=== PATIENT | female | born 1940 | race Two or more races ===

== ENCOUNTER 2018-02-18 22:35 | Emergency (ER) | payer OTHER ==
[2018-02-18 23:15] VITALS: BP 148/83; PULSE 101; TEMP 99.1; BMI 29.9
[2018-02-19] MEDS ORDERED: ALBUTEROL SO4 2.5/IPRATROPIUM 0.5 INH SOL 3 ML VIAL.NEB. NEB ONE ×2 (00:22→00:32)
--- NOTE | 2018-02-19 00:22 | PDOC ---
Attending Attestation - HPI HPI: 02/19/18 00:32 The patient is a 77 year old female, with a significant PMH of asthma, GERD, hyperlipidemia, hypertension, venous insufficiency, who presents to the emergency department with 1 week of cough and shortness of breath. The patient states she has had asthma for many years which always worsens in cold weather. The patient denies chest pain, headache and dizziness. Denies fever, chills, nausea, vomit, diarrhea and constipation. Denies dysuria, frequency, urgency and hematuria. Allergies: morphine Documentation prepared by Juaquin Bianchi, acting as medical psychotherapist for Rere Maxwell MD. <Juaquin Bianchi - Last Filed: 02/19/18 00:32> - Resident Resident Name: Crys Oliver - ED Attending Attestation I have performed the following: I have examined & evaluated the patient, The case was reviewed & discussed with the resident, I agree w/resident's findings & plan, Exceptions are as noted - Physicial Exam PE: GENERAL: Awake, alert, and fully oriented, in no acute distress HEAD: No signs of trauma EYES: PERRLA, EOMI, sclera anicteric, conjunctiva clear ENT: Auricles normal inspection, hearing grossly normal, nares patent, oropharynx clear without exudates. Moist mucosa NECK: Normal ROM, supple, no lymphadenopathy, JVD, or masses LUNGS: Intermittent loose cough. Good air entry, no wheezes appreciated. HEART: Regular rate and rhythm, normal S1 and S2, no murmurs, rubs or gallops ABDOMEN: Soft, nontender, normoactive bowel sounds. No guarding, no rebound. No masses EXTREMITIES: Normal range of motion, no edema. No clubbing or cyanosis. No cords, erythema, or tenderness NEUROLOGICAL: Cranial nerves II through XII grossly intact. Normal speech, normal gait SKIN: Warm, Dry, normal turgor, no rashes or lesions noted. - Medical Decision Making 02/19/18 00:29 Symptoms consistent with bronchospasm, likely due to bronchitis. As she has long -standing history of asthma/COPD, will start on abx. <Rere Maxwell - Last Filed: 02/19/18 01:28>
[2018-02-19] MEDS ORDERED: predniSONE 20 MG TABLET (UD) PO ONE (00:29)
[2018-02-19] MEDS ORDERED: predniSONE 20 MG TABLET (UD) ONE (00:33)
--- NOTE | 2018-02-19 00:37 | PDOC ---
History of Present Illness - General Chief Complaint: Cold Symptoms Stated Complaint: ASTHMA Time Seen by Provider: 02/18/18 23:48 History Source: Patient Exam Limitations: Language Barrier - History of Present Illness Initial Comments: 02/19/18 00:37 Patient is a 77 year old female with a PMHx of Asthma, GERD, HLD, HTN, Venous insufficiency who presents today for a one week history of a dry cough associated with shortness of breath and nasal congestion. Patient reports she' s had asthma since childhood and becomes sick every year around this time. Patient reports using her albuterol several times throughout the day for the past week without much relief of symptoms, which prompted this hospital visit. Patient denies ever being intubated in the past. Does report being hospitalized for asthma exacerbation. Patient otherwise denies any chest pain, palpitations, abdominal pain, diarrhea , constipation, nausea, vomiting, headaches, dizziness, loss of consciousness, dysuria, hematuria, hematochezia, hematemesis, hemoptysis. PMHx: HTN HLD ASTHMA GERD VENOUS INSUFFICIENCY Social Hx: Denies smoking Denies alcohol use Denies drug use Past History - Past Medical History Allergies/Adverse Reactions: Allergies Allergy/AdvReac Type Severity Reaction Status Date / Time morphine Allergy Verified 05/10/17 11:42 Home Medications: Ambulatory Orders Acetaminophen [Tylenol .Extra-Strength -] 500 mg PO BID PRN 09/25/11 Levothyroxine [Synthroid -] 100 mcg PO DAILY 09/25/11 Multivitamin [Multivitamins] 1 each PO DAILY 09/25/11 Simvastatin 40 mg PO HS 09/25/11 Zolpidem Tartrate [Ambien] 10 mg PO HS 09/25/11 Acetaminophen [Tylenol .Extra-Strength -] 2 tab PO Q6H #30 tablet 05/10/17 Divalproex Sodium 500 mg PO DAILY 05/10/17 Gabapentin 100 mg PO TID 05/10/17 Pantoprazole Sodium 40 mg PO DAILY 05/10/17 Valsartan [Diovan] 160 mg PO DAILY 05/10/17 Azithromycin [Zithromax 250mg Tablets -] 250 mg PO UTDICT #6 tab 02/19/18 predniSONE [Deltasone -] 40 mg PO DAILY #8 tablet 02/19/18 Anemia: No Asthma: Yes Cancer: No Cardiac Disorders: No CVA: No COPD: No CHF: No Dementia: No Diabetes: No GI Disorders: Yes Disorders: No HTN: Yes Hypercholesterolemia: Yes Liver Disease: No Seizures: No Thyroid Disease: Yes - Surgical History Abdominal Surgery: No Appendectomy: No Cardiac Surgery: No Cholecystectomy: Yes Lung Surgery: No Neurologic Surgery: No Orthopedic Surgery: No - Suicide/Smoking/Psychosocial Hx Smoking History: Never smoked Have you smoked in the past 12 months: No Hx Alcohol Use: No Drug/Substance Use Hx: No Substance Use Type: None Hx Substance Use Treatment: No Review of Systems - Review of Systems Constitutional: No: Chills, Diaphoresis, Fever HEENTM: Yes: Nose Congestion. No: Nose Pain, Throat Pain, Throat Swelling Respiratory: Yes: Cough, Shortness of Breath, SOB with Exertion, SOB at Rest. No: Productive cough, Hemoptysis Cardiac (ROS): No: Chest Pain, Edema, Palpitations, Syncope, Chest Tightness ABD/GI: No: Constipated, Diarrhea, Nausea, Vomiting, Indigestion, Abdominal cramping : No: Burning, Dysuria, Discharge, Frequency, Flank Pain, Hematuria, Urgency Musculoskeletal: No: Back Pain, Muscle Pain Integumentary: No: Bruising, Erythema Neurological: No: Headache, Numbness, Seizure, Tingling, Tremors, Weakness, Dizziness Psychiatric: No: Anxiety, Depression *Physical Exam - Vital Signs Last Vital Signs Temp Pulse Resp BP Pulse Ox 99.1 F 101 H 20 148/83 96 02/18/18 23:12 02/18/18 23:12 02/18/18 23:12 02/18/18 23:12 02/18/18 23:12 - Physical Exam General Appearance: Yes: Other (Awake, alert, oriented, in mild respiratory distress) HEENT: positive: Normal Voice, Pharynx Normal. negative: Tonsillar Exudate, Tonsillar Erythema Neck: negative: Decreased range of motion, Lymphadenopathy (R), Lymphadenopathy (L) Respiratory/Chest: positive: Lungs Clear, Accessory Muscle Use (mild). negative : Wheezing Cardiovascular: positive: Regular Rhythm, Regular Rate, S1, S2. negative: Edema , JVD, Murmur Gastrointestinal/Abdominal: positive: Other (Soft, nontender, nondistended, normoactive bowel sounds, no rebound or guarding, no organomegaly ) Musculoskeletal: positive: Normal Inspection. negative: CVA Tenderness, CVA Tenderness (R), CVA Tenderness (L) Extremity: positive: Normal Inspection, Normal Range of Motion. negative: Coldness, Cyanosis, Swelling, Calf Tenderness Neurologic: positive: manager of product II-XII NML intact, Fully Oriented, Alert, Normal Mood/ Affect, Normal Response, Motor Strength 5/5 Moderate Sedation - Procedure Monitoring Vital Signs: Procedure Monitoring Vital Signs Temperature 99.1 F 02/18/18 23:12 Pulse Rate 101 H 02/18/18 23:12 Respiratory Rate 20 02/18/18 23:12 Blood Pressure 148/83 02/18/18 23:12 O2 Sat by Pulse Oximetry (%) 96 02/18/18 23:12 ED Treatment Course - RADIOLOGY Radiology Studies Ordered: Category Date Time Status CHEST X-RAY PORTABLE* [RAD] Stat Radiology 02/19/18 00:28 Ordered Medical Decision Making - Medical Decision Making 02/19/18 00:44 Patient is a 77 year old female who presents to the ED for worsening cough and shortness of breath associated with nasal congestion, requiring frequent albuterol use throughout the day. Differential diagnosis include but not limited to Asthma exacerbation, PNA, Bronchitis, influenza. -CXR -DuoNeb -Prednisone -Azithromycin 500mg PO once 02/19/18 01:34 -Influenza negative -Patient reassessed and reports feeling much better. -Will discharge with Z-Pack and prednisone *DC/Admit/Observation/Transfer Diagnosis at time of Disposition: Asthma attack Qualifiers: Asthma severity: moderate Asthma persistence: unspecified Qualified Code(s): J45.901 - Unspecified asthma with (acute) exacerbation - Discharge Dispostion Disposition: HOME Condition at time of disposition: Stable Decision to Admit order: No - Prescriptions Prescriptions: Azithromycin [Zithromax 250mg Tablets -] 250 mg PO UTDICT #6 tab predniSONE [Deltasone -] 40 mg PO DAILY #8 tablet - Referrals Referrals: Stefany Lebron MD [Primary Care Provider] - - Patient Instructions Printed Discharge Instructions: DI for Acute Bronchitis Additional Instructions: -You were seen here for an asthma exacerbation and was given albuterol, steroids and antibiotics with moderate relief of symptoms. -You have two prescriptions sent to your pharmacy. They are called Azithromycin and Prednisone. Please pick them up from the pharmacy and take as directed. -Please follow up with your Property Utilization Officer as you might need to have a steroid inhaler added. -Please follow up with your primary care physician within a week. -If symptoms persist, please return to the emergency department immediately. - Post Discharge Activity
[2018-02-19] MEDS ORDERED: AZITHROMYCIN 500 MG TABLET PO ONE (00:45)
[2018-02-19] MEDS ORDERED: AZITHROMYCIN 500 MG TABLET ONE (00:55)
--- NOTE | 2018-02-19 13:26 | EKG ---
Test Reason : Blood Pressure : / mmHG Vent. 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
== END 2018-02-19 01:50 | disposition home or self-care (01) ==
LOC: JER 22:35
PROC: 3E0F7GC Introduction of Other Therapeutic Substance into Respiratory Tract, Via Natural or Artificial Opening (ICD-10-PCS; principal; 2018-02-18)
DX: J45.901 Unspecified asthma with (acute) exacerbation (principal); I10 Essential (primary) hypertension; E78.00 Pure hypercholesterolemia, unspecified; K21.9 Gastro-esophageal reflux disease without esophagitis; I87.2 Venous insufficiency (chronic) (peripheral)
CPT/HCPCS: 71045-TC-FY; 87804; 93005; 93010; 99282-25

== ENCOUNTER 2021-09-11 07:08 | Emergency (ER) | payer OTHER ==
[2021-09-11 07:28] VITALS: BP 136/89; PULSE 88; TEMP 98.3; BMI 35.4
== END 2021-09-11 10:00 | disposition left against medical advice (07) ==
LOC: JERFT 07:08
DX: R05.9 Cough, unspecified (principal)
CPT/HCPCS: 99283-25; 99284-25

== ENCOUNTER 2023-08-17 08:36 | Emergency (ER) | payer OTHER ==
[2023-08-17 08:47] VITALS: BP 140/72; PULSE 73; RESP 16; TEMP 98.6; BMI 33.3
[2023-08-17] MEDS ORDERED: FAMOTIDINE 20 MG/50 ML IVPB 20 MG/50 ML MG IVPB ONE (09:28)
[2023-08-17] MEDS ORDERED: MAG HYDROX/AL HYDROX/SIMETH 30 ML UNIT-DOSE CUP ONE (09:28)
[2023-08-17] MEDS ORDERED: ONDANSETRON 4 MG/2 ML VIAL ONE (09:28)
[2023-08-17] MEDS ORDERED: ACETAMINOPHEN INJECTION 100 ML IVPB ONE (09:28)
[2023-08-17] MEDS: MAG HYDROX/AL HYDROX/SIMETH 30 ML UNIT-DOSE CUP PO ONE (09:37)
[2023-08-17] MEDS: ONDANSETRON 4 MG/2 ML VIAL IVPUSH ONE (09:37)
[2023-08-17] MEDS: FAMOTIDINE 20 MG/50 ML IVPB 20 MG/50 ML MG IVPB ONE (09:37)
[2023-08-17] MEDS: ACETAMINOPHEN 1000 MG/100 ML BAG IVPB ONE (09:49)
[2023-08-17 09:50] LABS: BASO % 0.7 % (0-2.0); HEMATOCRIT 41.6 % (32.4-45.2); HEMOGLOBIN 13.8 GM/dL (10.7-15.3); LYMPH % 21.4 % (8-40); MCH 28.3 pg (25.7-33.7); MEAN CELL VOLUME 85.5 fl (80-96); MEAN PLT VOLUME 7.9 fl (7.5-11.1); MONO % 9.8 % (3.8-10.2); NEUT % 67.1 % (42.8-82.8); PLATELET COUNT 228 10^3/uL (134-434); RBC 4.87 M/mm3 (3.60-5.2); RDW 14.7 % (11.6-15.6)
[2023-08-17 10:03] LABS: POTASSIUM 4.8 mmol/L (3.5-5.1)
[2023-08-17 10:05] LABS: CALCIUM 9.2 mg/dL (8.5-10.1)
[2023-08-17 10:07] LABS: ALBUMIN 3.4 g/dl (3.4-5.0); BLOOD UREA NITROGEN 12.9 mg/dL (7-18)
[2023-08-17 10:09] LABS: CREATININE 1.2 mg/dL (0.55-1.3)
[2023-08-17 10:10] LABS: BILIRUBIN,TOTAL 0.8 mg/dL (0.2-1); TOT PROT 6.6 g/dl (6.4-8.2)
[2023-08-17] MEDS: SODIUM CHLORIDE 0.9% 500 ML INFUS.BAG IV ONE (10:41)
== END 2023-08-17 13:58 | disposition home or self-care (01) ==
LOC: JER 08:36
PROC: 3E033GC Introduction of Other Therapeutic Substance into Peripheral Vein, Percutaneous Approach (ICD-10-PCS; principal; 2023-08-17)
PROC: 3E033NZ Introduction of Analgesics, Hypnotics, Sedatives into Peripheral Vein, Percutaneous Approach (ICD-10-PCS; 2023-08-17)
PROC: 3E033GC Introduction of Other Therapeutic Substance into Peripheral Vein, Percutaneous Approach (ICD-10-PCS; 2023-08-17)
DX: R10.13 Epigastric pain (principal); R11.0 Nausea
CPT/HCPCS: 36415; 74176-TC; 80053; 83690; 84484; 85025; 93005; 93010; 99285-25; J0131

== ENCOUNTER 2023-10-23 08:26 | Emergency (ER) | payer OTHER ==
[2023-10-23 08:45] VITALS: BP 125/55; PULSE 94; RESP 16; TEMP 99; BMI 34.3
[2023-10-23 10:14] LABS: BASO % 0.4 % (0-2.0); EOS % 0.6 % (0-4.5); HEMATOCRIT 40.3 % (32.4-45.2); HEMOGLOBIN 13.7 GM/dL (10.7-15.3); LYMPH % 22.4 % (8-40); MCH 28.9 pg (25.7-33.7); MCHC 33.9 g/dl (32.0-36.0); MEAN CELL VOLUME 85.4 fl (80-96); MEAN PLT VOLUME 7.8 fl (7.5-11.1); MONO % 8.4 % (3.8-10.2); NEUT % 68.2 % (42.8-82.8); PLATELET COUNT 228 10^3/uL (134-434); RBC 4.72 M/mm3 (3.60-5.2); RDW 14.1 % (11.6-15.6); WHITE BLOOD COUNT 8.8 K/mm3 (4.0-10.0)
[2023-10-23 10:30] LABS: POTASSIUM 4.3 mmol/L (3.5-5.1)
[2023-10-23 10:32] LABS: CALCIUM 9.2 mg/dL (8.5-10.1)
[2023-10-23 10:34] LABS: ALBUMIN 3.2 g/dl (3.4-5.0); BLOOD UREA NITROGEN 13.3 mg/dL (7-18)
[2023-10-23 10:37] LABS: CREATININE 0.9 mg/dL (0.55-1.3)
[2023-10-23 10:38] LABS: BILIRUBIN,TOTAL 0.7 mg/dL (0.2-1); TOT PROT 6.5 g/dl (6.4-8.2)
[2023-10-23 10:42] LABS: N-TERMINAL BNP 329.6 pg/ml (5-450)
== END 2023-10-23 10:32 | disposition left against medical advice (07) ==
LOC: JER 08:26
DX: R06.02 Shortness of breath (principal); R05.9 Cough, unspecified; R07.9 Chest pain, unspecified; R60.0 Localized edema; Z20.822 Contact with and (suspected) exposure to COVID-19
CPT/HCPCS: 0241U-QW; 36415; 80053; 83880; 84484; 85025; 93005; 93010; 99284-25